=== PATIENT | male | born 1960 | race African-American/Black ===

== ENCOUNTER 2019-03-16 13:11 | Inpatient (IN) | payer OTHER, SELFPAY ==
[2019-03-16] VITALS (9 sets, daily range): BP systolic 107–137; BP diastolic 68–88
[~2019-03-16] VITALS: Ht 167.6 cm; Wt 67.2 kg
[2019-03-16] MEDS ORDERED: ONDANSETRON PF 4 MG/2 ML VIAL. IV ONE (13:30)
[2019-03-16] MEDS ORDERED: IV NORMAL SALINE 1000ML BAG 1,000 ML IV ONE (13:30)
[2019-03-16] MEDS ORDERED: FAMOTIDINE 20 MG/2 ML VIAL IVP ONE (13:30)
[2019-03-16] MEDS ORDERED: NITROGLYCERIN PREMIX 250 ML IV ONE (13:30)
[2019-03-16 13:35] LABS: BASO % 1 % (0-3); EOS # 0.1 x10^3/uL (0.0-0.7); EOS % 3 % (0-3); HEMATOCRIT 43.5 % (39.0-53.0); HEMOGLOBIN 14.8 g/dL (13.0-17.5); LYMPH # 0.8 x10^3/uL (1.0-4.8); LYMPH % 21 % (24-48); MEAN CORPUSCULAR HEMOGLOBIN 32 pg (25-35); MEAN CORPUSCULAR HGB CONC 34 g/dL (31-37); MEAN CORPUSCULAR VOLUME 92 fL (79-100); MONO # 0.4 x10^3/uL (0.0-1.1); MONO % 10 % (0-9); NEUT # 2.4 x10^3uL (1.8-7.7); NEUT % 65 % (31-73); PLATELET COUNT 144 x10^3/uL (140-400); RED BLOOD COUNT 4.71 x10^6/uL (4.30-5.70); RED CELL DISTRIBUTION WIDTH 13.4 % (11.5-14.5); WHITE BLOOD COUNT 3.8 x10^3/uL (4.0-11.0)
--- NOTE | 2019-03-16 13:38 | PHYS DOC ---
Past Medical History Past Medical History: High Cholesterol, Hypertension, Other Additional Past Medical Histor: HEART MURMUR Alcohol Use: Heavy Drug Use: Cocaine Adult General Chief Complaint Chief Complaint: CHEST PAIN HPI HPI Patient is a 58 year old male who presents with chest pain radiating to his back. Symptom onset was several hours prior to ED arrival. Patient acknowledges drinking alcohol and smoking cocaine prior to symptom onset. Also reports nausea and mild dyspnea. No fever chills, sweats. Chest pain is nonradiating and rated moderate to severe. Aspirin and nitroglycerin given to the patient per EMS prior to ED arrival with minimal relief of symptoms.[] Review of Systems Review of Systems ROS as per HPI All other systems were reviewed and found to be within normal limits, except as documented in this note. Current Medications Current Medications Current Medications Medications (Trade) Dose Ordered Sig/Robinson Start Time Stop Time Status Last Admin Dose Admin Famotidine (Pepcid Vial) 20 mg 1X ONCE 03/16/19 13:30 03/16/19 13:31 DC 03/16/19 13:44 20 MG Nitroglycerin/ Dextrose 250 ml @ 0 mls/hr 1X ONCE 03/16/19 13:30 03/16/19 13:31 DC 03/16/19 13:45 1.5 MLS/HR Ondansetron HCl (Zofran) 4 mg 1X ONCE 03/16/19 13:30 03/16/19 13:31 DC 03/16/19 13:44 4 MG Sodium Chloride 1,000 ml @ 1,000 mls/hr 1X ONCE 03/16/19 13:30 03/16/19 14:29 DC 03/16/19 13:47 1,000 MLS/HR Allergies Allergies Allergies Coded Allergies Type Severity Reaction Last Updated Verified ampicillin Allergy Severe Anaphylaxis 03/16/19 Yes Physical Exam Physical Exam Constitutional: Well developed, well nourished, no acute distress, non-toxic appearance. [] HENT: Normocephalic, atraumatic, bilateral external ears normal, oropharynx moist, no oral exudates, nose normal. [] Eyes: PERRLA, EOMI, conjunctiva normal, no discharge. [] Neck: Normal range of motion, no tenderness, supple, no stridor. [] Cardiovascular:Heart rate regular rhythm, no murmur [] Lungs & Thorax: Bilateral breath sounds clear to auscultation [] Abdomen: Bowel sounds normal, soft, min epigastric tenderness. [] Skin: Warm, dry, no erythema, no rash. [] Back: No tenderness. [] Extremities: No tenderness, no cyanosis, no clubbing, ROM intact, no edema. [] Neurologic: Alert and oriented X 3, normal motor function, normal sensory function, no focal deficits noted. [] Psychologic: Affect normal, judgement normal, mood normal. [] Current Patient Data Vital Signs Vital Signs Date Time Temp Pulse Resp B/P (MAP) Pulse Ox O2 Delivery O2 Flow Rate FiO2 03/16/19 14:15 50 12 142/84 (103) 97 Room Air 03/16/19 13:12 98.0 98.0 Lab Values Laboratory Tests Test 03/16/19 13:20 03/16/19 13:28 03/16/19 13:37 White Blood Count 3.8 x10^3/uL (4.0-11.0) L Red Blood Count 4.71 x10^6/uL (4.30-5.70) Hemoglobin 14.8 g/dL (13.0-17.5) Hematocrit 43.5 % (39.0-53.0) Mean Corpuscular Volume 92 fL (79-100) Mean Corpuscular Hemoglobin 32 pg (25-35) Mean Corpuscular Hemoglobin Concent 34 g/dL (31-37) Red Cell Distribution Width 13.4 % (11.5-14.5) Platelet Count 144 x10^3/uL (140-400) Neutrophils (%) (Auto) 65 % (31-73) Lymphocytes (%) (Auto) 21 % (24-48) L Monocytes (%) (Auto) 10 % (0-9) H Eosinophils (%) (Auto) 3 % (0-3) Basophils (%) (Auto) 1 % (0-3) Neutrophils # (Auto) 2.4 x10^3uL (1.8-7.7) Lymphocytes # (Auto) 0.8 x10^3/uL (1.0-4.8) L Monocytes # (Auto) 0.4 x10^3/uL (0.0-1.1) Eosinophils # (Auto) 0.1 x10^3/uL (0.0-0.7) Basophils # (Auto) 0.0 x10^3/uL (0.0-0.2) Sodium Level 142 mmol/L (136-145) Potassium Level 3.6 mmol/L (3.5-5.1) Chloride Level 105 mmol/L (98-107) Carbon Dioxide Level 25 mmol/L (21-32) Anion Gap 12 (6-14) 17 mmol/L (6-14) H Blood Urea Nitrogen 13 mg/dL (8-26) Creatinine 1.2 mg/dL (0.7-1.3) Estimated GFR (Cockcroft-Gault) 62.2 BUN/Creatinine Ratio 11 (6-20) Glucose Level 89 mg/dL (70-99) 81 mg/dL (70-99) Calcium Level 9.3 mg/dL (8.5-10.1) Total Bilirubin 0.7 mg/dL (0.2-1.0) Aspartate Amino Transferase (AST) 64 U/L (15-37) H Alanine Aminotransferase (ALT) 55 U/L (16-63) Alkaline Phosphatase 48 U/L (46-116) Total Protein 6.5 g/dL (6.4-8.2) Albumin 3.6 g/dL (3.4-5.0) Albumin/Globulin Ratio 1.2 (1.0-1.7) Ethyl Alcohol Level < 10 mg/dL (0-10) POC Troponin I 0.01 ng/ml (<0.08) POC Hemoglobin 13.9 g/dL (14-18) L POC Hematocrit 41 % (37-52) POC Sodium 142 mmol/L (135-145) POC Potassium 3.4 mmol/L (3.5-5.0) L POC Chloride 105 mmol/L (98-110) POC Total CO2 24 mmol/L (23-32) POC Blood Urea Nitrogen 12 mg/dL (8-26) POC Creatinine 1.1 mg/dL (0.5-1.4) POC Ionized Calcium (Etienne) 1.15 mmol/L (1.13-1.32) Laboratory Tests 03/16/19 13:20 Laboratory Tests 03/16/19 13:20 03/16/19 13:37 EKG EKG [EKG: Anterior ST segment elevation with T-wave inversions in inferior leads EKG #2: Anterior ST segment elevation with T-wave inversion in inferior leads] Radiology/Procedures Radiology/Procedures [ XR Chest: No acute cardiopulmonary disease.] Course & Med Decision Making Course & Med Decision Making Pertinent Labs and Imaging studies reviewed. (See chart for details) [Patient with atypical chest pain in the setting of polysubstance abuse. Aspirin given prior to ED arrival stroke, patient resting comfortably glycerin drip. EKG reviewed with Dr. Walden. Recommendations are continued care and hospital admission with cardiology consult.] Dragon Disclaimer Dragon Disclaimer This electronic medical record was generated, in whole or in part, using a voice recognition dictation system. Departure Departure Impression: Primary Impression: Chest pain Additional Impression: Polysubstance abuse Disposition: 09 ADMITTED INPATIENT Condition: GOOD Problem Qualifiers GLORIA JAFFE DO March 16, 2019 13:38
[2019-03-16 13:45] LABS: CREATININE ISTAT 1.1 mg/dL (0.5-1.4); HEMOGLOBIN ISTAT 13.9 g/dL (14-18); ION CA ISTAT 1.15 mmol/L (1.13-1.32); POTASSIUM ISTAT 3.4 mmol/L (3.5-5.0)
[2019-03-16 13:52] LABS: CALCIUM 9.3 mg/dL (8.5-10.1); CREATININE 1.2 mg/dL (0.7-1.3); GFR 62.2; POTASSIUM 3.6 mmol/L (3.5-5.1)
[2019-03-16 13:58] LABS: ALBUMIN 3.6 g/dL (3.4-5.0); ALBUMIN/GLOBULIN RATIO 1.2 (1.0-1.7); TOTAL BILIRUBIN 0.7 mg/dL (0.2-1.0); TOTAL PROTEIN 6.5 g/dL (6.4-8.2)
--- NOTE | 2019-03-16 14:08 | RAD ---
CHEST AP ONLY Clinical indications: Chest pain. COMPARISON: October 31, 2010 Findings: No acute lung infiltrate or pleural effusion or pulmonary edema or lung mass or pneumothorax is seen. The heart size, pulmonary vasculature, mediastinum and both jessica are unremarkable. Impression: No acute radiographic abnormality is seen. Electronically signed by: Dale Michel MD (03/16/2019 2:05 PM) [facility]
[2019-03-16] MEDS ORDERED: ONDANSETRON PF 4 MG/2 ML VIAL. IV PRN (15:00)
[2019-03-16 17:20] LABS: BARBITURATES NEG (NEG); BENZODIAZEPINES NEG (NEG); CANNABINOIDS NEG (NEG); COCAINE POS (NEG); METHADONE NEG (NEG); OPIATES NEG (NEG); PHENCYCLIDINE NEG (NEG)
[2019-03-16 17:21] LABS: AMPHETAMINE/METHAMPHETAMINE NEG (NEG)
--- NOTE | 2019-03-16 17:24 | PDOC1 ---
History and Physical Date of Admission: Date of Admission DATE: 03/16/19 TIME: 17:22 Chief Complaint: Problems: (1) Chest pain (2) Polysubstance abuse Chief Complain: Chest pain History of Present Illness: HPI: This is a pleasant middle-aged -Citizen Of [place] male who presented with chest pain He's been smoking crack and drinking alcohol today Rates his symptoms at 9 out of 10 Has associated nausea Worse with moving better with sitting still He tried taking some of her medicines that and work I discussed case with ER physician Kareen patient consult cardiology Patient does have some abnormal EKG changes with ST depression in J-point elevation Past Medical/Surgical History: PMH/PSH: Past Medical History: High Cholesterol, Hypertension, Other Additional Past Medical Histor: HEART MURMUR Alcohol Use: Heavy Drug Use: Cocaine Allergies: Allergies: Coded Allergies: ampicillin (Verified Allergy, Severe, Anaphylaxis, 03/16/19) Family History: Family History: Coronary disease Social History: Social Hisoty: He drinks alcohol smokes crack and cigarettes Current Medications: Current Medications Current Medications Famotidine (Pepcid Vial) 20 mg 1X ONCE IVP Last administered on 03/16/19at 13:44; Start 03/16/19 at 13:30; Stop 03/16/19 at 13:31; Status DC Ondansetron HCl (Zofran) 4 mg 1X ONCE IV Last administered on 03/16/19at 13:44; Start 03/16/19 at 13:30; Stop 03/16/19 at 13:31; Status DC Nitroglycerin/ Dextrose 250 ml @ 0 mls/hr 1X ONCE IV Last administered on 03/16/19at 13:45; Start 03/16/19 at 13:30; Stop 03/16/19 at 13:31; Status DC Sodium Chloride 1,000 ml @ 1,000 mls/hr 1X ONCE IV Last administered on 03/16/19at 13:47; Start 03/16/19 at 13:30; Stop 03/16/19 at 14:29; Status DC Ondansetron HCl (Zofran) 4 mg PRN Q8HRS PRN IV NAUSEA/VOMITING; Start 03/16/19 at 15:00; Stop 03/17/19 at 14:59 ROS: Review of Systems Review of System REVIEW OF SYSTEMS: GENERAL: Denies weakness SKIN: No bruising, hair changes or rashes. EYES: No blurred, double or loss of vision. NOSE AND THROAT: No history of nosebleeds, hoarseness or sore throat. HEART: Complains of chest pain LUNGS: Denies cough, hemoptysis, wheezing or shortness of breath. GASTROINTESTINAL: Denies changes in appetite, nausea, vomiting, diarrhea or constipation. GENITOURINARY: No history of frequency, urgency, hesitancy or nocturia. NEUROLOGIC: Denies history of numbness, tingling, tremor or weakness. PSYCHIATRIC: No history of panic, anxiety or depression. ENDOCRINE: No history of heat or cold intolerance, polyuria or polydipsia. EXTREMITIES: Denies muscle weakness, joint pain, pain on walking or stiffness. Physical Exam: Vital Signs: Vital Signs Date Time Temp Pulse Resp B/P (MAP) Pulse Ox O2 Delivery O2 Flow Rate FiO2 03/16/19 16:30 52 12 137/85 (102) 94 Room Air 03/16/19 13:12 98.0 98.0 Physcial Exam: GEN.: No apparent distress. Alert and oriented. HEENT: Head is normocephalic, atraumatic NECK: Supple, no JVD LUNGS: Clear to auscultation without rhonchi or wheezing HEART: RRR, S1, S2 present. Peripheral pulses intact ABDOMEN: Soft, nontender. Positive bowel sounds no organomegaly EXTREMITIES: Without any cyanosis, clubbing, or edema. Pedal pulses intact NEUROLOGIC: Normal speech, normal tone. A&O x 3 PSYCHIATRIC: Normal affect, normal mood. Stable SKIN: No ulcerations or rashes VASCULAR: Good capillary refill Labs: Labs: Laboratory Tests Test 03/16/19 13:20 03/16/19 13:28 03/16/19 13:37 White Blood Count 3.8 x10^3/uL (4.0-11.0) Red Blood Count 4.71 x10^6/uL (4.30-5.70) Hemoglobin 14.8 g/dL (13.0-17.5) Hematocrit 43.5 % (39.0-53.0) Mean Corpuscular Volume 92 fL (79-100) Mean Corpuscular Hemoglobin 32 pg (25-35) Mean Corpuscular Hemoglobin Concent 34 g/dL (31-37) Red Cell Distribution Width 13.4 % (11.5-14.5) Platelet Count 144 x10^3/uL (140-400) Neutrophils (%) (Auto) 65 % (31-73) Lymphocytes (%) (Auto) 21 % (24-48) Monocytes (%) (Auto) 10 % (0-9) Eosinophils (%) (Auto) 3 % (0-3) Basophils (%) (Auto) 1 % (0-3) Neutrophils # (Auto) 2.4 x10^3uL (1.8-7.7) Lymphocytes # (Auto) 0.8 x10^3/uL (1.0-4.8) Monocytes # (Auto) 0.4 x10^3/uL (0.0-1.1) Eosinophils # (Auto) 0.1 x10^3/uL (0.0-0.7) Basophils # (Auto) 0.0 x10^3/uL (0.0-0.2) Sodium Level 142 mmol/L (136-145) Potassium Level 3.6 mmol/L (3.5-5.1) Chloride Level 105 mmol/L (98-107) Carbon Dioxide Level 25 mmol/L (21-32) Anion Gap 12 (6-14) 17 mmol/L (6-14) Blood Urea Nitrogen 13 mg/dL (8-26) Creatinine 1.2 mg/dL (0.7-1.3) Estimated GFR (Cockcroft-Gault) 62.2 BUN/Creatinine Ratio 11 (6-20) Glucose Level 89 mg/dL (70-99) 81 mg/dL (70-99) Calcium Level 9.3 mg/dL (8.5-10.1) Total Bilirubin 0.7 mg/dL (0.2-1.0) Aspartate Amino Transf (AST/SGOT) 64 U/L (15-37) Alanine Aminotransferase (ALT/SGPT) 55 U/L (16-63) Alkaline Phosphatase 48 U/L (46-116) Total Protein 6.5 g/dL (6.4-8.2) Albumin 3.6 g/dL (3.4-5.0) Albumin/Globulin Ratio 1.2 (1.0-1.7) Ethyl Alcohol Level < 10 mg/dL (0-10) Bedside Troponin I 0.01 ng/ml (<0.08) Bedside Hemoglobin 13.9 g/dL (14-18) Bedside Hematocrit 41 % (37-52) Bedside Sodium 142 mmol/L (135-145) Bedside Potassium 3.4 mmol/L (3.5-5.0) Bedside Chloride 105 mmol/L (98-110) Bedside Total CO2 24 mmol/L (23-32) Bedside Blood Urea Nitrogen 12 mg/dL (8-26) Bedside Creatinine 1.1 mg/dL (0.5-1.4) Bedside Ionized Calcium (Etienne) 1.15 mmol/L (1.13-1.32) Laboratory Tests Test 03/16/19 13:20 03/16/19 13:28 03/16/19 13:37 White Blood Count 3.8 x10^3/uL (4.0-11.0) Red Blood Count 4.71 x10^6/uL (4.30-5.70) Hemoglobin 14.8 g/dL (13.0-17.5) Hematocrit 43.5 % (39.0-53.0) Mean Corpuscular Volume 92 fL (79-100) Mean Corpuscular Hemoglobin 32 pg (25-35) Mean Corpuscular Hemoglobin Concent 34 g/dL (31-37) Red Cell Distribution Width 13.4 % (11.5-14.5) Platelet Count 144 x10^3/uL (140-400) Neutrophils (%) (Auto) 65 % (31-73) Lymphocytes (%) (Auto) 21 % (24-48) Monocytes (%) (Auto) 10 % (0-9) Eosinophils (%) (Auto) 3 % (0-3) Basophils (%) (Auto) 1 % (0-3) Neutrophils # (Auto) 2.4 x10^3uL (1.8-7.7) Lymphocytes # (Auto) 0.8 x10^3/uL (1.0-4.8) Monocytes # (Auto) 0.4 x10^3/uL (0.0-1.1) Eosinophils # (Auto) 0.1 x10^3/uL (0.0-0.7) Basophils # (Auto) 0.0 x10^3/uL (0.0-0.2) Sodium Level 142 mmol/L (136-145) Potassium Level 3.6 mmol/L (3.5-5.1) Chloride Level 105 mmol/L (98-107) Carbon Dioxide Level 25 mmol/L (21-32) Anion Gap 12 (6-14) 17 mmol/L (6-14) Blood Urea Nitrogen 13 mg/dL (8-26) Creatinine 1.2 mg/dL (0.7-1.3) Estimated GFR (Cockcroft-Gault) 62.2 BUN/Creatinine Ratio 11 (6-20) Glucose Level 89 mg/dL (70-99) 81 mg/dL (70-99) Calcium Level 9.3 mg/dL (8.5-10.1) Total Bilirubin 0.7 mg/dL (0.2-1.0) Aspartate Amino Transf (AST/SGOT) 64 U/L (15-37) Alanine Aminotransferase (ALT/SGPT) 55 U/L (16-63) Alkaline Phosphatase 48 U/L (46-116) Total Protein 6.5 g/dL (6.4-8.2) Albumin 3.6 g/dL (3.4-5.0) Albumin/Globulin Ratio 1.2 (1.0-1.7) Ethyl Alcohol Level < 10 mg/dL (0-10) Bedside Troponin I 0.01 ng/ml (<0.08) Bedside Hemoglobin 13.9 g/dL (14-18) Bedside Hematocrit 41 % (37-52) Bedside Sodium 142 mmol/L (135-145) Bedside Potassium 3.4 mmol/L (3.5-5.0) Bedside Chloride 105 mmol/L (98-110) Bedside Total CO2 24 mmol/L (23-32) Bedside Blood Urea Nitrogen 12 mg/dL (8-26) Bedside Creatinine 1.1 mg/dL (0.5-1.4) Bedside Ionized Calcium (Etienne) 1.15 mmol/L (1.13-1.32) Images: Images Chest x-ray normal Assessment/Plan Assessment/Plan Chest pain, can abuse and alcohol abuse Plan Consult cardiology Serial enzymes still EKGs Daily aspirin Cardiac monitoring Full code DVT prophylaxis Home meds Prognosis guarded I told him to stop smoking crack cocaine Total time 32 minutes ROQUE ROSENTHAL III DO March 16, 2019 17:24
--- NOTE | 2019-03-16 17:30 | NUR ---
PATIENT BROUGHT TO ROOM 204 BY ED PERSONNEL. PATIENT ASSESSED AND VITALS OBTAINED AT THIS TIME. PATIENT ON HOURLY BLOOD PRESSURE MONITORING FOR NITRO GTT.PATIENT STABLE AT TIME OF ADMISSION. PATIENT NOT COMPLAINING OF ANY PAIN AT THIS TIME. PATIENT ORIENTED TO ROOM AND FALL POLICY. BED ALARM IN PLACE. CALL LIGHT IN REACH. CARDIAC INFORMATION ADMISSION BOOK GIVEN TO PATIENT. DINNER TRAY CALLED FOR PATIENT. WILL CONTINUE TO MONITOR PATIENT.
[2019-03-17 03:13] VITALS: BP 114/75
[2019-03-17 07:00] VITALS: BP 140/86
[2019-03-17 07:43] LABS: BASO % 1 % (0-3); EOS # 0.1 x10^3/uL (0.0-0.7); EOS % 3 % (0-3); HEMATOCRIT 40.7 % (39.0-53.0); HEMOGLOBIN 13.8 g/dL (13.0-17.5); LYMPH # 0.7 x10^3/uL (1.0-4.8); LYMPH % 21 % (24-48); MEAN CORPUSCULAR HEMOGLOBIN 31 pg (25-35); MEAN CORPUSCULAR HGB CONC 34 g/dL (31-37); MEAN CORPUSCULAR VOLUME 92 fL (79-100); MONO # 0.4 x10^3/uL (0.0-1.1); MONO % 11 % (0-9); NEUT # 2.2 x10^3uL (1.8-7.7); NEUT % 64 % (31-73); PLATELET COUNT 142 x10^3/uL (140-400); RED BLOOD COUNT 4.41 x10^6/uL (4.30-5.70); RED CELL DISTRIBUTION WIDTH 13.4 % (11.5-14.5); WHITE BLOOD COUNT 3.4 x10^3/uL (4.0-11.0)
[2019-03-17 08:01] LABS: ALBUMIN/GLOBULIN RATIO 0.9 (1.0-1.7); CALCIUM 8.8 mg/dL (8.5-10.1); CREATININE 1.1 mg/dL (0.7-1.3); GFR 83.2; TOTAL BILIRUBIN 0.4 mg/dL (0.2-1.0); TOTAL PROTEIN 6.2 g/dL (6.4-8.2)
--- NOTE | 2019-03-17 08:33 | PDOC2 ---
CARDIOLOGY CONSULT NOTE CHEIF COMPLAINT: Chest pain HPI: Unfortunate 58 y.o man with PTSD history and HTN presented with chest pain. He uses cocaine 3-4 x /week, drinks heavily and smokes. In this setting presented to the ER with chest pain. initial w/u unremarkable. He feels better today. No syncope, palpitations, orthopnea, PND or LE edema. PMHX: As above SOCHX: As above FAMHX: NC CURRENT MEDS: Current Medications Medications (Trade) Dose Ordered Sig/Robinson Start Time Stop Time Status Last Admin Dose Admin Famotidine (Pepcid Vial) 20 mg 1X ONCE 03/16/19 13:30 03/16/19 13:31 DC 03/16/19 13:44 20 MG Nitroglycerin/ Dextrose 250 ml @ 0 mls/hr 1X ONCE 03/16/19 13:30 03/16/19 13:31 DC 03/16/19 13:45 1.5 MLS/HR Ondansetron HCl (Zofran) 4 mg PRN Q8HRS PRN 03/16/19 15:00 03/17/19 14:59 Sodium Chloride 1,000 ml @ 1,000 mls/hr 1X ONCE 03/16/19 13:30 03/16/19 14:29 DC 03/16/19 13:47 1,000 MLS/HR ALLERGIES: Allergies Coded Allergies Type Severity Reaction Last Updated Verified ampicillin Allergy Severe Anaphylaxis 03/16/19 Yes ROS: Negative unless mentioned above. PHYSICAL EXAM: Vital Signs: Vital Signs Date Time Temp Pulse Resp B/P (MAP) Pulse Ox O2 Delivery O2 Flow Rate FiO2 03/17/19 07:00 97.9 45 12 140/86 (104) 96 Room Air 97.9 I & O Intake and Output 03/17/19 06:59 Intake Total 1712 ml Output Total 675 ml Balance 1037 ml Intake Oral 712 ml IV Total 1000 ml Output Urine Total 675 ml Physical Exam: GEN.: No apparent distress. Alert and oriented. HEENT: Head is normocephalic, atraumatic NECK: Supple. LUNGS: Clear to auscultation. HEART: RRR, S1, S2 present. Peripheral pulses intact ABDOMEN: Soft, nontender. Positive bowel sounds. EXTREMITIES: Without any cyanosis. NEUROLOGIC: Normal speech, normal tone PSYCHIATRIC: Normal affect, normal mood. SKIN: No ulcerations DIAGNOSTIC TESTING: Trop neg x 2. EKG unchanged from prior. NSR Lab Cr wnl ASSESSMENT: 1. Chest pain - likely related to coronary microspasm. No obvious injury based on labs/ekg. 2. HTN - well controlled. PLAN: 1. Drug cessation 2. Outpt BP monitoring. 3. Referral to psychiatry/addiction services. 4. Consider outpt echo. Thanks. Pls call with questions. JOÃO MORSE MD March 17, 2019 08:33
[2019-03-17 11:00] VITALS: BP 136/85
--- NOTE | 2019-03-17 13:44 | PDOC ---
[facility] PROGRESS NOTE Chief Complaint Chief Complaint Chest pain- neg trop x3 Cocaine abuse Ethanol abuse Tobacco abuse PTSD HTN History of Present Illness History of Present Illness Patient seen and examined Trop negx3 Patient denies any chest pain Discussed importance of cessation of cocaine use, pt acknowledged and agreed to stop Patient denied going to drug/alcohol rehab Vitals Vitals Vital Signs Date Time Temp Pulse Resp B/P (MAP) Pulse Ox O2 Delivery O2 Flow Rate FiO2 03/17/19 11:00 98.0 56 12 136/85 (102) 96 Room Air 98.0 Physical Exam General: Alert, Oriented X3, Cooperative, No acute distress Heart: Regular rate, Normal S1 Lungs: Clear Extremities: No clubbing, No cyanosis Skin: No significant lesion Labs Labs: Laboratory Tests Test 03/16/19 17:03 03/16/19 18:10 03/16/19 21:10 03/17/19 07:05 Urine Opiates Screen Neg (NEG) Urine Methadone Screen Neg (NEG) Urine Barbiturates Neg (NEG) Urine Phencyclidine Screen Neg (NEG) Urine Amphetamine/Methamphetamine Neg (NEG) Urine Benzodiazepines Screen Neg (NEG) Urine Cocaine Screen Pos (NEG) Urine Cannabinoids Screen Neg (NEG) Urine Ethyl Alcohol Neg (NEG) Troponin I Quantitative < 0.017 ng/mL (0.000-0.055) < 0.017 ng/mL (0.000-0.055) < 0.017 ng/mL (0.000-0.055) White Blood Count 3.4 x10^3/uL (4.0-11.0) Red Blood Count 4.41 x10^6/uL (4.30-5.70) Hemoglobin 13.8 g/dL (13.0-17.5) Hematocrit 40.7 % (39.0-53.0) Mean Corpuscular Volume 92 fL (79-100) Mean Corpuscular Hemoglobin 31 pg (25-35) Mean Corpuscular Hemoglobin Concent 34 g/dL (31-37) Red Cell Distribution Width 13.4 % (11.5-14.5) Platelet Count 142 x10^3/uL (140-400) Neutrophils (%) (Auto) 64 % (31-73) Lymphocytes (%) (Auto) 21 % (24-48) Monocytes (%) (Auto) 11 % (0-9) Eosinophils (%) (Auto) 3 % (0-3) Basophils (%) (Auto) 1 % (0-3) Neutrophils # (Auto) 2.2 x10^3uL (1.8-7.7) Lymphocytes # (Auto) 0.7 x10^3/uL (1.0-4.8) Monocytes # (Auto) 0.4 x10^3/uL (0.0-1.1) Eosinophils # (Auto) 0.1 x10^3/uL (0.0-0.7) Basophils # (Auto) 0.0 x10^3/uL (0.0-0.2) Sodium Level 141 mmol/L (136-145) Potassium Level 4.0 mmol/L (3.5-5.1) Chloride Level 106 mmol/L (98-107) Carbon Dioxide Level 28 mmol/L (21-32) Anion Gap 7 (6-14) Blood Urea Nitrogen 12 mg/dL (8-26) Creatinine 1.1 mg/dL (0.7-1.3) Estimated GFR (Cockcroft-Gault) 83.2 BUN/Creatinine Ratio 11 (6-20) Glucose Level 106 mg/dL (70-99) Calcium Level 8.8 mg/dL (8.5-10.1) Total Bilirubin 0.4 mg/dL (0.2-1.0) Aspartate Amino Transf (AST/SGOT) 50 U/L (15-37) Alanine Aminotransferase (ALT/SGPT) 47 U/L (16-63) Alkaline Phosphatase 54 U/L (46-116) Total Protein 6.2 g/dL (6.4-8.2) Albumin 3.0 g/dL (3.4-5.0) Albumin/Globulin Ratio 0.9 (1.0-1.7) Review of Systems Review of Systems Patient denies N/V/D Patient denies ALFARO Assessment and Plan Assessmemt and Plan Problems Medical Problems: (1) Chest pain Status: Acute (2) Polysubstance abuse Status: Acute Assessment: Chest pain- neg trop x3 Cocaine abuse Ethanol abuse Tobacco abuse PTSD HTN Plan: Cardiac monitoring Daily aspirin Cards following Full code DVT prophylaxis Cocaine cessation Probable discharge today if subspecialists agree Comment Review of Relevant I have reviewed the following items jimenez (where applicable) has been applied. Labs Laboratory Tests Test 03/16/19 13:20 03/16/19 13:28 03/16/19 13:37 03/16/19 17:03 White Blood Count 3.8 x10^3/uL (4.0-11.0) Red Blood Count 4.71 x10^6/uL (4.30-5.70) Hemoglobin 14.8 g/dL (13.0-17.5) Hematocrit 43.5 % (39.0-53.0) Mean Corpuscular Volume 92 fL (79-100) Mean Corpuscular Hemoglobin 32 pg (25-35) Mean Corpuscular Hemoglobin Concent 34 g/dL (31-37) Red Cell Distribution Width 13.4 % (11.5-14.5) Platelet Count 144 x10^3/uL (140-400) Neutrophils (%) (Auto) 65 % (31-73) Lymphocytes (%) (Auto) 21 % (24-48) Monocytes (%) (Auto) 10 % (0-9) Eosinophils (%) (Auto) 3 % (0-3) Basophils (%) (Auto) 1 % (0-3) Neutrophils # (Auto) 2.4 x10^3uL (1.8-7.7) Lymphocytes # (Auto) 0.8 x10^3/uL (1.0-4.8) Monocytes # (Auto) 0.4 x10^3/uL (0.0-1.1) Eosinophils # (Auto) 0.1 x10^3/uL (0.0-0.7) Basophils # (Auto) 0.0 x10^3/uL (0.0-0.2) Sodium Level 142 mmol/L (136-145) Potassium Level 3.6 mmol/L (3.5-5.1) Chloride Level 105 mmol/L (98-107) Carbon Dioxide Level 25 mmol/L (21-32) Anion Gap 12 (6-14) 17 mmol/L (6-14) Blood Urea Nitrogen 13 mg/dL (8-26) Creatinine 1.2 mg/dL (0.7-1.3) Estimated GFR (Cockcroft-Gault) 62.2 BUN/Creatinine Ratio 11 (6-20) Glucose Level 89 mg/dL (70-99) 81 mg/dL (70-99) Calcium Level 9.3 mg/dL (8.5-10.1) Total Bilirubin 0.7 mg/dL (0.2-1.0) Aspartate Amino Transf (AST/SGOT) 64 U/L (15-37) Alanine Aminotransferase (ALT/SGPT) 55 U/L (16-63) Alkaline Phosphatase 48 U/L (46-116) Total Protein 6.5 g/dL (6.4-8.2) Albumin 3.6 g/dL (3.4-5.0) Albumin/Globulin Ratio 1.2 (1.0-1.7) Ethyl Alcohol Level < 10 mg/dL (0-10) Bedside Troponin I 0.01 ng/ml (<0.08) Bedside Hemoglobin 13.9 g/dL (14-18) Bedside Hematocrit 41 % (37-52) Bedside Sodium 142 mmol/L (135-145) Bedside Potassium 3.4 mmol/L (3.5-5.0) Bedside Chloride 105 mmol/L (98-110) Bedside Total CO2 24 mmol/L (23-32) Bedside Blood Urea Nitrogen 12 mg/dL (8-26) Bedside Creatinine 1.1 mg/dL (0.5-1.4) Bedside Ionized Calcium (Etienne) 1.15 mmol/L (1.13-1.32) Urine Opiates Screen Neg (NEG) Urine Methadone Screen Neg (NEG) Urine Barbiturates Neg (NEG) Urine Phencyclidine Screen Neg (NEG) Urine Amphetamine/Methamphetamine Neg (NEG) Urine Benzodiazepines Screen Neg (NEG) Urine Cocaine Screen Pos (NEG) Urine Cannabinoids Screen Neg (NEG) Urine Ethyl Alcohol Neg (NEG) Test 03/16/19 18:10 03/16/19 21:10 03/17/19 07:05 Troponin I Quantitative < 0.017 ng/mL (0.000-0.055) < 0.017 ng/mL (0.000-0.055) < 0.017 ng/mL (0.000-0.055) White Blood Count 3.4 x10^3/uL (4.0-11.0) Red Blood Count 4.41 x10^6/uL (4.30-5.70) Hemoglobin 13.8 g/dL (13.0-17.5) Hematocrit 40.7 % (39.0-53.0) Mean Corpuscular Volume 92 fL (79-100) Mean Corpuscular Hemoglobin 31 pg (25-35) Mean Corpuscular Hemoglobin Concent 34 g/dL (31-37) Red Cell Distribution Width 13.4 % (11.5-14.5) Platelet Count 142 x10^3/uL (140-400) Neutrophils (%) (Auto) 64 % (31-73) Lymphocytes (%) (Auto) 21 % (24-48) Monocytes (%) (Auto) 11 % (0-9) Eosinophils (%) (Auto) 3 % (0-3) Basophils (%) (Auto) 1 % (0-3) Neutrophils # (Auto) 2.2 x10^3uL (1.8-7.7) Lymphocytes # (Auto) 0.7 x10^3/uL (1.0-4.8) Monocytes # (Auto) 0.4 x10^3/uL (0.0-1.1) Eosinophils # (Auto) 0.1 x10^3/uL (0.0-0.7) Basophils # (Auto) 0.0 x10^3/uL (0.0-0.2) Sodium Level 141 mmol/L (136-145) Potassium Level 4.0 mmol/L (3.5-5.1) Chloride Level 106 mmol/L (98-107) Carbon Dioxide Level 28 mmol/L (21-32) Anion Gap 7 (6-14) Blood Urea Nitrogen 12 mg/dL (8-26) Creatinine 1.1 mg/dL (0.7-1.3) Estimated GFR (Cockcroft-Gault) 83.2 BUN/Creatinine Ratio 11 (6-20) Glucose Level 106 mg/dL (70-99) Calcium Level 8.8 mg/dL (8.5-10.1) Total Bilirubin 0.4 mg/dL (0.2-1.0) Aspartate Amino Transf (AST/SGOT) 50 U/L (15-37) Alanine Aminotransferase (ALT/SGPT) 47 U/L (16-63) Alkaline Phosphatase 54 U/L (46-116) Total Protein 6.2 g/dL (6.4-8.2) Albumin 3.0 g/dL (3.4-5.0) Albumin/Globulin Ratio 0.9 (1.0-1.7) Laboratory Tests Test 03/16/19 17:03 03/16/19 18:10 03/16/19 21:10 03/17/19 07:05 Urine Opiates Screen Neg (NEG) Urine Methadone Screen Neg (NEG) Urine Barbiturates Neg (NEG) Urine Phencyclidine Screen Neg (NEG) Urine Amphetamine/Methamphetamine Neg (NEG) Urine Benzodiazepines Screen Neg (NEG) Urine Cocaine Screen Pos (NEG) Urine Cannabinoids Screen Neg (NEG) Urine Ethyl Alcohol Neg (NEG) Troponin I Quantitative < 0.017 ng/mL (0.000-0.055) < 0.017 ng/mL (0.000-0.055) < 0.017 ng/mL (0.000-0.055) White Blood Count 3.4 x10^3/uL (4.0-11.0) Red Blood Count 4.41 x10^6/uL (4.30-5.70) Hemoglobin 13.8 g/dL (13.0-17.5) Hematocrit 40.7 % (39.0-53.0) Mean Corpuscular Volume 92 fL (79-100) Mean Corpuscular Hemoglobin 31 pg (25-35) Mean Corpuscular Hemoglobin Concent 34 g/dL (31-37) Red Cell Distribution Width 13.4 % (11.5-14.5) Platelet Count 142 x10^3/uL (140-400) Neutrophils (%) (Auto) 64 % (31-73) Lymphocytes (%) (Auto) 21 % (24-48) Monocytes (%) (Auto) 11 % (0-9) Eosinophils (%) (Auto) 3 % (0-3) Basophils (%) (Auto) 1 % (0-3) Neutrophils # (Auto) 2.2 x10^3uL (1.8-7.7) Lymphocytes # (Auto) 0.7 x10^3/uL (1.0-4.8) Monocytes # (Auto) 0.4 x10^3/uL (0.0-1.1) Eosinophils # (Auto) 0.1 x10^3/uL (0.0-0.7) Basophils # (Auto) 0.0 x10^3/uL (0.0-0.2) Sodium Level 141 mmol/L (136-145) Potassium Level 4.0 mmol/L (3.5-5.1) Chloride Level 106 mmol/L (98-107) Carbon Dioxide Level 28 mmol/L (21-32) Anion Gap 7 (6-14) Blood Urea Nitrogen 12 mg/dL (8-26) Creatinine 1.1 mg/dL (0.7-1.3) Estimated GFR (Cockcroft-Gault) 83.2 BUN/Creatinine Ratio 11 (6-20) Glucose Level 106 mg/dL (70-99) Calcium Level 8.8 mg/dL (8.5-10.1) Total Bilirubin 0.4 mg/dL (0.2-1.0) Aspartate Amino Transf (AST/SGOT) 50 U/L (15-37) Alanine Aminotransferase (ALT/SGPT) 47 U/L (16-63) Alkaline Phosphatase 54 U/L (46-116) Total Protein 6.2 g/dL (6.4-8.2) Albumin 3.0 g/dL (3.4-5.0) Albumin/Globulin Ratio 0.9 (1.0-1.7) Medications Current Medications Famotidine (Pepcid Vial) 20 mg 1X ONCE IVP Last administered on 03/16/19 13:44; Start 03/16/19 at 13:30; Stop 03/16/19 at 13:31; Status DC Ondansetron HCl (Zofran) 4 mg 1X ONCE IV Last administered on 03/16/19 13:44; Start 03/16/19 at 13:30; Stop 03/16/19 at 13:31; Status DC Nitroglycerin/ Dextrose 250 ml @ 0 mls/hr 1X ONCE IV Last administered on 03/16/19 13:45; Start 03/16/19 at 13:30; Stop 03/16/19 at 13:31; Status DC Sodium Chloride 1,000 ml @ 1,000 mls/hr 1X ONCE IV Last administered on 03/16/19at 13:47; Start 03/16/19 at 13:30; Stop 03/16/19 at 14:29; Status DC Ondansetron HCl (Zofran) 4 mg PRN Q8HRS PRN IV NAUSEA/VOMITING; Start 03/16/19 at 15:00; Stop 03/17/19 at 14:59 Active Scripts Active No Active Prescriptions or Reported Medications Vitals/I & O Vital Sign - Last 24 Hours 03/16/19 03/16/19 03/16/19 03/16/19 13:45 14:00 14:15 14:30 Pulse 60 56 50 52 Resp 21 14 12 12 B/P (MAP) 142/86 (104) 132/88 (103) 142/84 (103) 135/84 (101) Pulse Ox 96 93 97 99 O2 Delivery Room Air Room Air Room Air Room Air 03/16/19 03/16/19 03/16/19 03/16/19 14:45 15:00 15:30 16:00 Pulse 50 54 52 52 Resp 13 14 13 11 B/P (MAP) 161/88 (112) 137/88 (104) 148/93 (111) 145/83 (103) Pulse Ox 99 99 96 96 O2 Delivery Room Air Room Air Room Air Room Air 03/16/19 03/16/19 03/16/19 03/16/19 16:30 17:20 17:45 19:10 Temp 98.0 98.0 Pulse 52 51 66 Resp 12 14 B/P (MAP) 137/85 (102) 137/87 (104) 134/84 (101) Pulse Ox 94 94 O2 Delivery Room Air Room Air Room Air 03/16/19 03/16/19 03/16/19 03/16/19 19:12 19:30 19:44 20:30 Temp 98.0 98.0 Pulse 63 56 66 Resp 18 B/P (MAP) 134/84 (101) 123/80 (94) 114/72 (86) Pulse Ox 98 O2 Delivery Room Air Room Air 03/16/19 03/16/19 03/16/19 03/16/19 21:30 22:20 22:30 23:30 Temp 98.3 98.3 Pulse 56 58 57 60 Resp 16 B/P (MAP) 109/68 (82) 118/72 (87) 107/77 (87) 129/88 (102) Pulse Ox 100 O2 Delivery Nasal Cannula 03/17/19 03/17/19 03/17/19 03/17/19 03:13 07:00 07:55 11:00 Temp 98.0 97.9 98.0 98.0 97.9 98.0 Pulse 58 45 56 Resp 16 12 12 B/P (MAP) 114/75 (88) 140/86 (104) 136/85 (102) Pulse Ox 97 96 96 O2 Delivery Room Air Room Air Room Air Room Air Intake and Output 03/16/19 03/16/19 03/17/19 14:59 22:59 06:59 Intake Total 1472 ml 240 ml Output Total 675 ml Balance 1472 ml -435 ml ROQUE ROSENTHAL III DO March 17, 2019 13:44
--- NOTE | 2019-03-17 14:31 | EKG ---
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
--- NOTE | 2019-03-17 14:46 | EKG ---
[facility] [address] [place] [address] Test Date: 2019-03-16 Test Time: 13:14:28 Pat Name: ANA PIERCE Department: Room: Gender: M Insurance Checker: : 1960 Requested By: GLORIA JAFFE Order Number: [id number] Reading MD: Measurements Intervals Dickens Rate: 62 P: 24 OK: 180 QRS: -24 QRSD: 88 T: -34 QT: 402 QTc: 414 Interpretive Statements SINUS RHYTHM LEFTWARD AXIS T ABNORMALITY IN INFERIOR LEADS NON SPECIFIC ST-T ABNORMALITY (ELEVATION) ABNORMAL ECG No previous ECG available for comparison
--- NOTE | 2019-03-17 14:54 | NUR ---
patients iv's removed and tele monitor off. discharge instructions discussed with patient. patient informed to follow up with pcp in 1 week as needed and to quit drinking and using cocaine. patient escorted to family vehicle by yaritza jimenes.
--- NOTE | 2019-03-17 20:03 | DS ---
DATE OF DISCHARGE: 03/17/2019 ADMISSION DIAGNOSES: Chest pain and cocaine positive, alcohol abuse, tobacco abuse. DISCHARGE DIAGNOSIS: Resolving chest pain secondary to cocaine abuse. HOSPITAL COURSE: The patient is a pleasant 58-year-old male who still does cocaine, smokes and drinks regularly. He presented with chest pain. We admitted him. We did serial enzymes, serial EKGs. We consulted Cardiology. Today, I saw and examined him. His heart tones are normal. Her lungs were clear. His abdomen was soft. He wants to go home. I discussed the case with nurse. We plan to discharge. DISPOSITION: Home. ACTIVITY: As tolerated. DIET: Low sodium. MEDICATIONS: Please see the MRAD. TOTAL TIME: 31 minutes. ROQUE ROSENTHAL DO DR: KASSIDY/clinton JOB#: [id number] / [id number]
== END 2019-03-17 15:02 | disposition home or self-care (01) | DRG 918 ==
LOC: ER 13:11 → 2 NORTH 14:32
PROVIDERS: ADMIT Internal Medicine; ATTEND Internal Medicine
DX: T40.5X1A Poisoning by cocaine, accidental (unintentional), initial encounter (principal); E78.00 Pure hypercholesterolemia, unspecified; I10 Essential (primary) hypertension; F19.10 Other psychoactive substance abuse, uncomplicated; F14.10 Cocaine abuse, uncomplicated; F10.10 Alcohol abuse, uncomplicated; F43.10 Post-traumatic stress disorder, unspecified; Z88.0 Allergy status to penicillin; Z82.49 Family history of ischemic heart disease and other diseases of the circulatory system; Z72.0 Tobacco use; Y92.89 Other specified places as the place of occurrence of the external cause
CPT/HCPCS: 36415; 71045; 80047; 80053; 80307; 84484; 85025; 93005; 96365; 96366; 96375; G0480; J2405; J3490; J7030; 99285-25

== ENCOUNTER 2019-05-05 08:53 | Emergency (ER) | payer OTHER ==
[~2019-05-05] VITALS: Ht 167.6 cm; Wt 68.0 kg
[2019-05-05] MEDS ORDERED: IPRATRPIUM/ALBUTEROL 0.5/2.5MG 3 ML NEBU. NEB ONE (09:15)
[2019-05-05] MEDS ORDERED: methylPREDNISolone SOD SUCC PF 125 MG/2 ML VIAL. IV ONE (09:15)
[2019-05-05 09:40] LABS: BASO % 1 % (0-3); EOS # 0.1 x10^3/uL (0.0-0.7); EOS % 2 % (0-3); HEMOGLOBIN 15.3 g/dL (13.0-17.5); LYMPH # 1.1 x10^3/uL (1.0-4.8); LYMPH % 19 % (24-48); MEAN CORPUSCULAR HEMOGLOBIN 32 pg (25-35); MEAN CORPUSCULAR HGB CONC 34 g/dL (31-37); MEAN CORPUSCULAR VOLUME 93 fL (79-100); MONO # 0.8 x10^3/uL (0.0-1.1); MONO % 13 % (0-9); NEUT % 66 % (31-73); PLATELET COUNT 154 x10^3/uL (140-400); RED BLOOD COUNT 4.81 x10^6/uL (4.30-5.70); RED CELL DISTRIBUTION WIDTH 13.8 % (11.5-14.5); WHITE BLOOD COUNT 6.1 x10^3/uL (4.0-11.0)
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
[2019-05-05 09:49] LABS: CALCIUM 9.1 mg/dL (8.5-10.1); CREATININE 1.2 mg/dL (0.7-1.3); GFR 75.2; POTASSIUM 3.7 mmol/L (3.5-5.1)
[2019-05-05 09:54] LABS: ALBUMIN 3.7 g/dL (3.4-5.0); TOTAL BILIRUBIN 1.3 mg/dL (0.2-1.0); TOTAL PROTEIN 7.3 g/dL (6.4-8.2)
--- NOTE | 2019-05-05 10:06 | RAD ---
Chest, PA and Lateral: Technique: PA and lateral views of the chest were obtained. History: Shortness of breath. Comparison: 03/16/2019. Findings: The heart and pulmonary vasculature appear within normal limits. The lungs are clear. The pleural margins are clear. Impression: No acute chest process is seen. Electronically signed by: Dmitriy Zuleta MD (05/05/2019 10:03 AM) [facility]
--- NOTE | 2019-05-05 10:13 | RAD ---
Examination: CT head and maxillofacial bones without contrast HISTORY: History of right jaw injury COMPARISON: None available TECHNIQUE: Axial CT images of the head was performed without contrast. Axial CT images of the maxillofacial bones were performed without contrast. Coronal and sagittal reformats are performed. Exposure: One or more of the following individualized dose reduction techniques were utilized for this examination: 1. Automated exposure control 2. Adjustment of the mA and/or kV according to patient size 3. Use of iterative reconstruction technique FINDINGS: No abnormal attenuation within the brain parenchyma. No evidence of acute intracranial hemorrhage. No extra-axial fluid collections. No mass effect or midline shift. Ventricular size is appropriate. Basal cisterns are patent. No fractures identified.Moulton-white differentiation is preserved.Globes and orbits are within normal limits. Paranasal sinuses and mastoid air cells are clear. The bilateral orbital globes appear intact. The bilateral orbital mayorga appear intact. There is minimal depressed appearance of the inferior pole of the right orbital wall without obvious acute fracture possibly chronic. IMPRESSION: 1. No acute intracranial findings. 2. No acute fracture of the facial bones. Mild depressed appearance of the inferior right orbital bone could be chronic. Electronically signed by: Dmitriy Zuleta MD (05/05/2019 10:11 AM) [facility]
[2019-05-05 10:23] VITALS: BP 163/84
[2019-05-05] MEDS ORDERED: NAPR-683 PO (10:27)
--- NOTE | 2019-05-05 12:04 | EKG ---
[facility] [address] [place] [id number] Test Date: 2019-05-05 Test Time: 09:19:12 Pat Name: ANA PIERCE Department: Room: Gender: M Environmental Compliance Inspector: : [id number] Requested By: SELENE FALCON Order Number: [id number] Reading MD: Measurements Intervals Windfall Rate: 63 P: -6 DE: 176 QRS: -36 QRSD: 90 T: -36 QT: 402 QTc: 414 Interpretive Statements SINUS RHYTHM ABNORMAL LEFT AXIS DEVIATION LEFT ANTERIOR FASCICULAR BLOCK CONSIDER LEFT VENTRICULAR HYPERTROPHY QRS(T) CONTOUR ABNORMALITY CANNOT RULE OUT ANTEROSEPTAL MYOCARDIAL DAMAGE T ABNORMALITY IN ANTEROLATERAL LEADS INFEROLATERAL LEADS ABNORMAL ECG No previous ECG available for comparison
== END 2019-05-05 10:32 | disposition home or self-care (01) ==
LOC: ER 08:53
DX: S09.8XXA Other specified injuries of head, initial encounter (principal); S09.93XA Unspecified injury of face, initial encounter; R06.02 Shortness of breath; F12.10 Cannabis abuse, uncomplicated; F15.10 Other stimulant abuse, uncomplicated; R79.89 Other specified abnormal findings of blood chemistry; R74.8 Abnormal levels of other serum enzymes; F10.20 Alcohol dependence, uncomplicated; Y90.0 Blood alcohol level of less than 20 mg/100 ml; Z71.6 Tobacco abuse counseling; F17.210 Nicotine dependence, cigarettes, uncomplicated; E78.00 Pure hypercholesterolemia, unspecified; I10 Essential (primary) hypertension; Z98.890 Other specified postprocedural states; Z88.1 Allergy status to other antibiotic agents; Y08.89XA Assault by other specified means, initial encounter; Y93.89 Activity, other specified; Y92.89 Other specified places as the place of occurrence of the external cause; Y99.8 Other external cause status
CPT/HCPCS: 36415; 70450; 70486; 71046; 80053; 82550; 83880; 84484; 85025; 93005; 94640; 96374; 99285; G0480; J2930